=== PATIENT | male | born 1990 | race Hispanic/Latino ===

== ENCOUNTER 2020-05-07 09:54 | Emergency (ER) | payer SELFPAY ==
[2020-05-07 10:46] LABS: Absolute Lymphocytes (CBC) 2.1 K/uL (0.7-4.9); Basophils % 0.7 % (0-1.3); Hematocrit 43.2 % (39.6-49.0); Lymphocytes % 21.4 % (15.3-44.8); RBC Red Blood Cell Count 4.81 M/uL (4.33-5.43); Urine Appearance CLEAR; Urine Bilirubin NEGATIVE (NEG); Urine Blood NEGATIVE (NEG); Urine Color YELLOW; Urine Glucose NEGATIVE (NEG); Urine Protein NEGATIVE (NEG); Urine Specific Gravity 1.015 (1.005-1.030); Urine pH 6.5 (5.0-7.0)
[2020-05-07 10:54] LABS: Urine Microscopic Reflex NO UMIC
[2020-05-07 10:58] LABS: Urine Blood TRACE (NEG); Urine Glucose NEGATIVE (NEG); Urine Protein NEGATIVE (NEG)
[2020-05-07 11:03] LABS: ALT/SGPT 18 U/L (12-78); AST/SGOT 18 U/L (15-37); Albumin 3.9 g/dL (3.4-5.0); Alkaline Phosphatase 76 U/L (45-117); BUN Blood Urea Nitrogen 13 mg/dL (7-18); Bicarbonate 32 mmol/L (21-32); Bilirubin Total 0.4 mg/dL (0.2-1.0); Glucose Level 116 mg/dL (74-106); Potassium 3.3 mmol/L (3.5-5.1); Sodium Level 139 mmol/L (136-145)
[2020-05-07] MEDS ORDERED: LIDOCAINE 1% MPF 2 ML AMPULE ONE (11:26)
[2020-05-07] MEDS ORDERED: AZITHROMYCIN 250 MG TAB ONE (11:26)
[2020-05-07] MEDS ORDERED: CEFTRIAXONE 250 MG/VIAL ONE (11:27)
--- NOTE | 2020-05-07 11:35 | ER ---
Nurse's Notes [facility] Name: Bebeto Trejo Age: 29 yrs Sex: Male : 1990 Arrival Date: 05/07/2020 Time: 09:55 Bed 14 Private MD: Diagnosis: Other reactive arthropathies, right ankle and foot Presentation: 05/07 10:03 Chief complaint: Patient states: right ankle swelling x 2 wks, low back pain x 2-3 wks, sv right groin swelling x 1 month. No meds taken OTC. Coronavirus screen: Client denies travel out of the [place] in the last 14 days. At this time, the client does not indicate any symptoms associated with coronavirus-19. Ebola Screen: No symptoms or risks identified at this time. Initial Sepsis Screen: Does the patient meet any 2 criteria? HR > 90 bpm. No. Patient's initial sepsis screen is negative. Does the patient have a suspected source of infection? No. Patient's initial sepsis screen is negative. Risk Assessment: Do you want to hurt yourself or someone else? Patient reports no desire to harm self or others. Onset of symptoms is unknown. 10:03 Method Of Arrival: Ambulatory sv 10:03 Acuity: FELIPE 3 sv Triage Assessment: 10:05 General: Appears in no apparent distress. uncomfortable, slender, Behavior is calm, sv cooperative, appropriate for age. Pain: Complains of pain in low back area, right femoral area, right inguinal area and right ankle. Neuro: Level of Consciousness is awake, alert, obeys commands, Oriented to person, place, time, situation, Moves all extremities. Full function Gait is steady. Respiratory: Respiratory effort is even, unlabored, Respiratory pattern is regular, symmetrical. Derm: Skin is pink, warm \T\ dry. Musculoskeletal: Range of motion: intact in all extremities. Historical: - Allergies: 10:05 No Known Allergies; sv - Home Meds: 10:05 None [Active]; sv - PMHx: 10:05 None; sv - PSHx: 10:05 None; sv - Immunization history:: Adult Immunizations up to date. - Social history:: Smoking status: Patient reports the use of cigarette tobacco products, smokes one-half pack cigarettes per day, Patient uses street drugs, marijuana. - Family history:: not pertinent. Screenin:06 Abuse screen: Denies threats or abuse. Denies injuries from another. Nutritional sv screening: No deficits noted. Tuberculosis screening: No symptoms or risk factors identified. Fall Risk None identified. Assessment: 11:43 Reassessment: Pt up for discharge but waiting for IM shot time. sv 12:12 Reassessment: Patient appears in no apparent distress at this time. No changes from sv previously documented assessment. Patient and/or family updated on plan of care and expected duration. Pain level reassessed. Patient is alert, oriented x 3, equal unlabored respirations, skin warm/dry/pink. Vital Signs: 10:03 BP 136 / 81; Pulse 104; Resp 16; Temp 98.9; Pulse Ox 99% ; Weight 63.5 kg; Height 5 ft. sv 9 in. (175.26 cm); 12:13 BP 122 / 78; Pulse 88; Resp 16; Pulse Ox 99% ; sv 10:03 Body Mass Index 20.67 (63.50 kg, 175.26 cm) sv ED Course: 09:55 Patient arrived in ED. ds1 10:03 Kathryn Suárez, BERNADETTE is Primary Nurse. sv 10:05 Triage completed. sv 10:05 Arm band placed on. sv 10:06 Patient has correct armband on for positive identification. Placed in gown. Bed in low sv position. Call light in reach. Pulse ox on. NIBP on. 10:12 Linden Dillard MD is Attending Physician. ma2 10:44 ED physician to see patient. sv 10:45 Inserted saline lock: 20 gauge in right antecubital area, using aseptic technique. sv ,using aseptic technique. done by [facility] Blood collected. 12:12 No provider procedures requiring assistance completed. IV discontinued, intact, sv bleeding controlled, No redness/swelling at site. Pressure dressing applied. Administered Medications: 11:42 Drug: AZITHromycin 1 grams Route: PO; sv 12:12 Follow up: Response: No adverse reaction sv 11:42 Drug: Rocephin (cefTRIAXone) 250 mg Route: IM; Site: right gluteus; sv 12:12 Follow up: Response: No adverse reaction sv Outcome: 11:34 Discharge ordered by . ma2 12:13 Discharged to home ambulatory. sv 12:13 Condition: stable 12:13 Discharge instructions given to patient, Instructed on discharge instructions, follow up and referral plans. medication usage, Demonstrated understanding of instructions, follow-up care, Prescriptions given X 1. 12:13 Patient left the ED. sv Signatures: Kathryn Suárez RN RN Leigh Osorio ds1 Linden Dillard MD MD ma2
--- NOTE | 2020-05-07 11:35 | EDPHYS ---
[facility] Name: Bebeto Trejo Age: 29 yrs Sex: Male : 1990 Arrival Date: 05/07/2020 Time: 09:55 Bed 14 Private MD: ED Physician Linden Dillard HPI: 05/07 11:07 This 29 yrs old Male presents to ER via Ambulatory with complaints of abkle ma2 and knee pain and groin lymph node . 11:07 The complaints affect the buttocks, right foot and left leg. Associated signs and ma2 symptoms: Pertinent negatives: nausea, rash, swelling, vomiting. Severity of symptoms: At their worst the symptoms were mild, in the emergency department the symptoms have resolved. The patient has not experienced similar symptoms in the past. sexually active with mutiple male partners and here with migratory arthritis that is mile and groin lymph node, n orectal or penile discharge . Historical: - Allergies: 10:05 No Known Allergies; sv - Home Meds: 10:05 None [Active]; sv - PMHx: 10:05 None; sv - PSHx: 10:05 None; sv - Immunization history:: Adult Immunizations up to date. - Social history:: Smoking status: Patient reports the use of cigarette tobacco products, smokes one-half pack cigarettes per day, Patient uses street drugs, marijuana. - Family history:: not pertinent. ROS: 11:07 Constitutional: Negative for fever, chills, and weight loss, Eyes: Negative for injury, ma2 pain, redness, and discharge. 11:07 All other systems are negative. Exam: 11:07 Constitutional: This is a well developed, well nourished patient who is awake, alert, ma2 and in no acute distress. Head/Face: Normocephalic, atraumatic. Eyes: Pupils equal round and reactive to light, extra-ocular motions intact. Lids and lashes normal. Conjunctiva and sclera are non-icteric and not injected. Cornea within normal limits. Periorbital areas with no swelling, redness, or edema. ENT: Nares patent. No nasal discharge, no septal abnormalities noted. Tympanic membranes are normal and external auditory canals are clear. Oropharynx with no redness, swelling, or masses, exudates, or evidence of obstruction, uvula midline. Mucous membranes moist. Neck: Trachea midline, no thyromegaly or masses palpated, and no cervical lymphadenopathy. Supple, full range of motion without nuchal rigidity, or vertebral point tenderness. No Meningismus. Chest/axilla: Normal chest wall appearance and motion. Nontender with no deformity. No lesions are appreciated. Cardiovascular: Regular rate and rhythm with a normal S1 and S2. No gallops, murmurs, or rubs. Normal PMI, no JVD. No pulse deficits. Respiratory: Lungs have equal breath sounds bilaterally, clear to auscultation and percussion. No rales, rhonchi or wheezes noted. No increased work of breathing, no retractions or nasal flaring. Abdomen/GI: Soft, non-tender, with normal bowel sounds. No distension or tympany. No guarding or rebound. No evidence of tenderness throughout. Back: No spinal tenderness. No costovertebral tenderness. Full range of motion. Male : has right groin enlarged lymphnode, non tender no fluctuence, skin wnl,m otherwise Normal genitalia with no discharge Skin: Warm, dry with normal turgor. Normal color with no rashes, no lesions, and no evidence of cellulitis. MS/ Extremity: Pulses equal, no cyanosis. Neurovascular intact. Full, normal range of motion. Neuro: Awake and alert, GCS 15, oriented to person, place, time, and situation. Cranial nerves II-XII grossly intact. Motor strength 5/5 in all extremities. Sensory grossly intact. Cerebellar exam normal. Normal gait. Psych: Awake, alert, with orientation to person, place and time. Behavior, mood, and affect are within normal limits. Vital Signs: 10:03 BP 136 / 81; Pulse 104; Resp 16; Temp 98.9; Pulse Ox 99% ; Weight 63.5 kg; Height 5 ft. sv 9 in. (175.26 cm); 12:13 BP 122 / 78; Pulse 88; Resp 16; Pulse Ox 99% ; sv 10:03 Body Mass Index 20.67 (63.50 kg, 175.26 cm) sv MDM: 10:12 Patient medically screened. ma2 11:07 Differential diagnosis: fracture, sprain, arthritis, std. Data reviewed: vital signs, ma2 nurses notes, lab test result(s). Counseling: I had a detailed discussion with the patient and/or guardian regarding: the historical points, exam findings, and any diagnostic results supporting the discharge/admit diagnosis, the presence of at least one elevated blood pressure reading (>120/80) during this emergency department visit, the need for outpatient follow up. ED course: i advised that this could be one of the stds, i advised him to see pcp for testing for hiv, and other stds and get treatment, he want empirical treatment in er with no testing . 05/07 10:31 Order name: CMP; Complete Time: 11:32 pa2 05/07 10:31 Order name: CBC with Diff; Complete Time: 11:32 pa2 05/07 10:31 Order name: UA; Complete Time: : [facility] 05/07 10:49 Order name: Urine Dipstick--Ancillary (enter results); Complete Time: 11:32 eb 05/07 10:41 Order name: Urine Dipstick-Ancillary (obtain specimen); Complete Time: 10:41 sv Administered Medications: 11:42 Drug: AZITHromycin 1 grams Route: PO; sv 12:12 Follow up: Response: No adverse reaction sv 11:42 Drug: Rocephin (cefTRIAXone) 250 mg Route: IM; Site: right gluteus; sv 12:12 Follow up: Response: No adverse reaction sv Disposition: 05/07/20 11:34 Discharged to Home. Impression: Other reactive arthropathies, right ankle and foot. - Condition is Stable. - Prescriptions for Diclofenac Sodium 75 mg Oral Tablet Sustained Release - take 1 tablet by ORAL route 2 times per day; 30 tablet. - Medication Reconciliation Form, Thank You Letter, Antibiotic Education, Prescription Opioid Use form. - Follow up: Private Physician; When: Tomorrow; Reason: Continuance of care. Signatures: Dispatcher [employer] Kathryn Tee RN RN sv Alzahri, Mohammad, MD MD ma2 Corrections: (The following items were deleted from the chart) 12:13 11:34 05/07/2020 11:34 Discharged to Home. Impression: Other reactive arthropathies, sv right ankle and foot. Condition is Stable. Prescriptions for Diclofenac Sodium 75 mg Oral Tablet Sustained Release - take 1 tablet by ORAL route 2 times per day; 30 tablet. and Forms are Medication Reconciliation Form, Thank You Letter, Antibiotic Education, Prescription Opioid Use. Follow up: Private Physician; When: Tomorrow; Reason: Continuance of care. ma2
[2020-05-07 12:30] VITALS: TEMP 98.9; O2SAT 99
[2020-05-07 12:31] VITALS: BP 122/78
== END 2020-05-07 12:13 | disposition home or self-care (01) ==
LOC: ER 09:54
DX: M25.571 Pain in right ankle and joints of right foot (principal); M02.871 Other reactive arthropathies, right ankle and foot; F17.210 Nicotine dependence, cigarettes, uncomplicated
CPT/HCPCS: 36415; 80053; 81003; 85025; 96372; 99284; J0696; J2001

== ENCOUNTER 2020-08-28 15:15 | Emergency (ER) | payer SELFPAY ==
--- NOTE | 2020-08-28 18:09 | EDPHYS ---
Physician Documentation [facility] Name: Bebeto Trejo Age: 30 yrs Sex: Male : 1990 Arrival Date: 08/28/2020 Time: 15:18 Bed 6 Private MD: ED Physician Dann Bryant HPI: 08/28 21:34 This 30 yrs old Male presents to ER via Ambulatory with complaints of Swollen snw Lymph Nodes. 21:34 Onset: The symptoms/episode began/occurred acutely. Associated signs and symptoms: snw Pertinent positives: denies fever, denies trauma, denies recent infection or weight loss. The patient has not experienced similar symptoms in the past. It is unknown whether or not the patient has recently seen a physician. Historical: - Allergies: 15:52 No Known Allergies; ca1 - PMHx: 15:52 Syphilis; ca1 - PSHx: 15:52 None; ca1 - Immunization history:: Adult Immunizations up to date, Flu vaccine is not up to date. - Social history:: Smoking status: Patient reports the use of cigarette tobacco products, smokes one-half pack cigarettes per day. ROS: 21:39 Constitutional: Negative for fever, chills, and weight loss, Eyes: Negative for injury, snw pain, redness, and discharge, ENT: Negative for injury, pain, and discharge, Neck: Negative for injury, pain, and swelling, Cardiovascular: Negative for chest pain, palpitations, and edema, Respiratory: Negative for shortness of breath, cough, wheezing, and pleuritic chest pain, Abdomen/GI: Negative for abdominal pain, nausea, vomiting, diarrhea, and constipation, Back: Negative for injury and pain, MS/Extremity: Negative for injury and deformity, Neuro: Negative for headache, weakness, numbness, tingling, and seizure, Psych: Negative for depression, anxiety, suicide ideation, homicidal ideation, and hallucinations. 21:39 Skin: Positive for draining tender area to right groin. Exam: 21:30 Constitutional: This is a well developed, well nourished patient who is awake, alert, snw and in no acute distress. Head/Face: Normocephalic, atraumatic. Eyes: Pupils equal round and reactive to light, extra-ocular motions intact. Lids and lashes normal. Conjunctiva and sclera are non-icteric and not injected. Cornea within normal limits. Periorbital areas with no swelling, redness, or edema. ENT: Nares patent. No nasal discharge, no septal abnormalities noted. Tympanic membranes are normal and external auditory canals are clear. Oropharynx with no redness, swelling, or masses, exudates, or evidence of obstruction, uvula midline. Mucous membranes moist. Neck: Trachea midline, no thyromegaly or masses palpated, and no cervical lymphadenopathy. Supple, full range of motion without nuchal rigidity, or vertebral point tenderness. No Meningismus. Chest/axilla: Normal chest wall appearance and motion. Nontender with no deformity. No lesions are appreciated. Cardiovascular: Regular rate and rhythm with a normal S1 and S2. No gallops, murmurs, or rubs. Normal PMI, no JVD. No pulse deficits. Respiratory: Lungs have equal breath sounds bilaterally, clear to auscultation and percussion. No rales, rhonchi or wheezes noted. No increased work of breathing, no retractions or nasal flaring. Abdomen/GI: Soft, non-tender, with normal bowel sounds. No distension or tympany. No guarding or rebound. No evidence of tenderness throughout. Back: No spinal tenderness. No costovertebral tenderness. Full range of motion. Skin: Warm, dry with normal turgor. Normal color with no rashes, no lesions, and no evidence of cellulitis except at right groin, + area of tenderness with exudate MS/ Extremity: Pulses equal, no cyanosis. Neurovascular intact. Full, normal range of motion. Neuro: Awake and alert, GCS 15, oriented to person, place, time, and situation. Cranial nerves II-XII grossly intact. Motor strength 5/5 in all extremities. Sensory grossly intact. Cerebellar exam normal. Normal gait. Psych: Awake, alert, with orientation to person, place and time. Behavior, mood, and affect are within normal limits. Vital Signs: 15:47 BP 134 / 86; Pulse 88; Resp 17 S; Temp 99(TE); Pulse Ox 99% on R/A; Weight 61.23 kg ca1 (R); Height 5 ft. 9 in. (175.26 cm) (R); Pain 0/10; 17:30 BP 122 / 78; Pulse 74; Resp 16; Pulse Ox 100% ; bp 18:15 BP 122 / 81; Pulse 77; Resp 16; Temp 98; Pulse Ox 100% ; bp 15:47 Body Mass Index 19.94 (61.23 kg, 175.26 cm) ca1 MDM: 17:35 Patient medically screened. snw 21:33 Data reviewed: vital signs, nurses notes. Data interpreted: Pulse oximetry: on room air snw is 100 %. Interpretation: normal. Counseling: I had a detailed discussion with the patient and/or guardian regarding: the historical points, exam findings, and any diagnostic results supporting the discharge/admit diagnosis, the presence of at least one elevated blood pressure reading (>120/80) during this emergency department visit, radiology results, the need for outpatient follow up, for definitive care, to return to the emergency department if symptoms worsen or persist or if there are any questions or concerns that arise at home. Administered Medications: 18:15 Drug: Hibiclens 4 % 1 application Route: Topical; Site: affected area; bp 18:15 Drug: UltRAM 50 mg Route: PO; bp 18:25 Follow up: Response: Medication administered at discharge. bp Disposition: 08/28/20 18:08 Discharged to Home. Impression: Cutaneous abscess of groin. - Condition is Stable. - Discharge Instructions: Skin Abscess, Hand Washing, Incision and Drainage, Care After. - Prescriptions for Mobic 7.5 mg Oral Tablet - take 1 tablet by ORAL route once daily take with food; 20 tablet. - Medication Reconciliation Form, Thank You Letter, Antibiotic Education, Prescription Opioid Use form. - Follow up: Emergency Department; When: As needed; Reason: Worsening of condition. Follow up: Private Physician; When: 1 week; Reason: Recheck today's complaints, Continuance of care, Re-evaluation by your physician. - Notes: Continue Bactrim Addendum: 08/30/2020 19:43 Co-signature as Attending Physician, Dann Bryant MD. r n Signatures: Kemi Pride, CELL ASSEMBLY PINNER-C CELL ASSEMBLY PINNER-Csnw Dann Bryant MD MD rn Peltier, Brian, RN RN bp AcobSophia RN RN ca1 Corrections: (The following items were deleted from the chart) 08/28 18:27 18:08 08/28/2020 18:08 Discharged to Home. Impression: Cutaneous abscess of groin. bp Condition is Stable. Forms are Medication Reconciliation Form, Thank You Letter, Antibiotic Education, Prescription Opioid Use. Follow up: Emergency Department; When: As needed; Reason: Worsening of condition. Follow up: Private Physician; When: 1 week; Reason: Recheck today's complaints, Continuance of care, Re-evaluation by your physician. snw 21:40 21:33 Constitutional: Negative for fever, chills, and weight loss, Eyes: Negative for snw injury, pain, redness, and discharge, ENT: Negative for injury, pain, and discharge, Neck: Negative for injury, pain, and swelling, Cardiovascular: Negative for chest pain, palpitations, and edema, Respiratory: Negative for shortness of breath, cough, wheezing, and pleuritic chest pain, Abdomen/GI: Negative for abdominal pain, nausea, vomiting, diarrhea, and constipation, Back: Negative for injury and pain, : Negative for injury, bleeding, discharge, and swelling, Skin: Negative for injury, rash, and discoloration, Neuro: Negative for headache, weakness, numbness, tingling, and seizure, Psych: Negative for depression, anxiety, suicide ideation, homicidal ideation, and hallucinations, snw 21:40 21:33 MS/extremity: Positive for right thigh tenderness x 2 weeks, snw snw 21:44 21:30 Constitutional: This is a well developed, well nourished patient who is awake, snw alert, and in no acute distress. Head/Face: Normocephalic, atraumatic. Eyes: Pupils equal round and reactive to light, extra-ocular motions intact. Lids and lashes normal. Conjunctiva and sclera are non-icteric and not injected. Cornea within normal limits. Periorbital areas with no swelling, redness, or edema. ENT: Nares patent. No nasal discharge, no septal abnormalities noted. Tympanic membranes are normal and external auditory canals are clear. Oropharynx with no redness, swelling, or masses, exudates, or evidence of obstruction, uvula midline. Mucous membranes moist. Neck: Trachea midline, no thyromegaly or masses palpated, and no cervical lymphadenopathy. Supple, full range of motion without nuchal rigidity, or vertebral point tenderness. No Meningismus. Chest/axilla: Normal chest wall appearance and motion. Nontender with no deformity. No lesions are appreciated. Cardiovascular: Regular rate and rhythm with a normal S1 and S2. No gallops, murmurs, or rubs. Normal PMI, no JVD. No pulse deficits. Respiratory: Lungs have equal breath sounds bilaterally, clear to auscultation and percussion. No rales, rhonchi or wheezes noted. No increased work of breathing, no retractions or nasal flaring. Abdomen/GI: Soft, non-tender, with normal bowel sounds. No distension or tympany. No guarding or rebound. No evidence of tenderness throughout. Back: No spinal tenderness. No costovertebral tenderness. Full range of motion. Skin: Warm, dry with normal turgor. Normal color with no rashes, no lesions, and no evidence of cellulitis. Neuro: Awake and alert, GCS 15, oriented to person, place, time, and situation. Cranial nerves II-XII grossly intact. Motor strength 5/5 in all extremities. Sensory grossly intact. Cerebellar exam normal. Normal gait. Psych: Awake, alert, with orientation to person, place and time. Behavior, mood, and affect are within normal limits. snw 21:44 21:30 Musculoskeletal/extremity: Extremities: c/o right thigh pain, noted bilateral snw groin lymph node enlargement, no fever, no pain to hip with rom, no limp., ROM: intact in all extremities, Circulation is intact in all extremities. Sensation intact. snw 21:45 21:33 Special discussion: Based on the history and exam findings, there is no snw indication for further emergent testing or inpatient evaluation. I discussed with the patient/guardian the need to see the equities analyst for further evaluation of the symptoms. snw 21:45 21:35 ED course: Pt's Mom states child has been complaining of pain from right hip to snw knee x 2 weeks. As he has some noted lymphadenopathy to bilateral groin and not axilla or other regions will tx with antibiotics and have pt f/u with PCP on completion to make sure of resolution.. snw
--- NOTE | 2020-08-28 18:09 | ER ---
Nurse's Notes [facility] Name: Bebeto Trejo Age: 30 yrs Sex: Male : 1990 Arrival Date: 08/28/2020 Time: 15:18 Bed 6 Private MD: Diagnosis: Cutaneous abscess of groin Presentation: 08/28 15:47 Chief complaint: Patient states: Taking Sulfamethoxazole-TMP for Syphilis since the ca1 of August. It's been swelling for months. Today, the swelling on my R inguinal area busted and it was draining. I called my doctor and he said to come to the ER. Denies fever. Coronavirus screen: Client denies travel out of the [place] in the last 14 days. At this time, the client does not indicate any symptoms associated with coronavirus-19. Ebola Screen: Patient negative for fever greater than or equal to 101.5 degrees Fahrenheit, and additional compatible Ebola Virus Disease symptoms Patient denies exposure to infectious person. Patient denies travel to an Ebola-affected area in the 21 days before illness onset. No symptoms or risks identified at this time. Initial Sepsis Screen: Does the patient meet any 2 criteria? No. Patient's initial sepsis screen is negative. Does the patient have a suspected source of infection? No. Patient's initial sepsis screen is negative. Risk Assessment: Do you want to hurt yourself or someone else? Patient reports no desire to harm self or others. Onset of symptoms was August 28, 2020. 15:47 Method Of Arrival: Ambulatory ca1 15:47 Acuity: FELIPE 4 ca1 Triage Assessment: 17:30 General: Appears in no apparent distress. uncomfortable, Behavior is cooperative, bp appropriate for age, anxious. Pain: Complains of pain in pelvis. EENT: No deficits noted. Neuro: No deficits noted. Cardiovascular: No deficits noted. Respiratory: No deficits noted. GI: No signs and/or symptoms were reported involving the gastrointestinal system. : No signs and/or symptoms were reported regarding the genitourinary system. Derm: Abscess located on pelvis. Musculoskeletal: No deficits noted. Historical: - Allergies: 15:52 No Known Allergies; ca1 - PMHx: 15:52 Syphilis; ca1 - PSHx: 15:52 None; ca1 - Immunization history:: Adult Immunizations up to date, Flu vaccine is not up to date. - Social history:: Smoking status: Patient reports the use of cigarette tobacco products, smokes one-half pack cigarettes per day. Screenin:30 Abuse screen: Denies threats or abuse. Denies injuries from another. Nutritional bp screening: No deficits noted. Tuberculosis screening: No symptoms or risk factors identified. Fall Risk None identified. Assessment: 17:30 General: SEE TRIAGE NOTE. bp 18:25 Reassessment: PT D/C HOME AMBULATORY, DX WITH CUTANEOUS ABSCESS. bp Vital Signs: 15:47 BP 134 / 86; Pulse 88; Resp 17 S; Temp 99(TE); Pulse Ox 99% on R/A; Weight 61.23 kg ca1 (R); Height 5 ft. 9 in. (175.26 cm) (R); Pain 0/10; 17:30 BP 122 / 78; Pulse 74; Resp 16; Pulse Ox 100% ; bp 18:15 BP 122 / 81; Pulse 77; Resp 16; Temp 98; Pulse Ox 100% ; bp 15:47 Body Mass Index 19.94 (61.23 kg, 175.26 cm) ca1 ED Course: 15:18 Patient arrived in ED. ag5 15:51 Triage completed. ca1 15:52 Arm band placed on right wrist. ca1 16:41 [facility] snw 16:41 Dann Bryant MD is Attending Physician. snw 17:25 Juanita Ordaz, BERNADETTE is Primary Nurse. iw 17:30 Patient has correct armband on for positive identification. Bed in low position. Call bp light in reach. Side rails up X2. 17:47 Bobby Clancy, BERNADETTE is Primary Nurse. bp 18:15 No provider procedures requiring assistance completed. Patient did not have IV access bp during this emergency room visit. Administered Medications: 18:15 Drug: Hibiclens 4 % 1 application Route: Topical; Site: affected area; bp 18:15 Drug: UltRAM 50 mg Route: PO; bp 18:25 Follow up: Response: Medication administered at discharge. bp Outcome: 18:08 Discharge ordered by . snw 18:15 Discharged to home ambulatory. bp 18:15 Condition: stable 18:15 Discharge instructions given to patient, Instructed on discharge instructions, follow up and referral plans. medication usage, wound care, Demonstrated understanding of instructions, follow-up care, medications, wound care, Prescriptions given X 1. 18:27 Patient left the ED. bp Signatures: Kemi Pride, NINA-C CHIEF MERCHANDISING OFFICER-[employer] Juanita Ordaz, RN Bobby Hess RN RN bp Acob, Cheryl, RN RN [facility] Rabia Cruz ag5
[2020-08-28] MEDS ORDERED: TRAMADOL HCL 50 MG TAB ONE (18:29)
[2020-08-31 22:46] VITALS: O2SAT 100
[2020-08-31 22:47] VITALS: BP 122/81; TEMP 98
== END 2020-08-28 18:27 | disposition home or self-care (01) ==
LOC: ER 15:15
DX: L02.214 Cutaneous abscess of groin (principal)
CPT/HCPCS: 99283